=== PATIENT | male | born 1945 | race Caucasian/White ===

== ENCOUNTER → 2017-01-17 | Day surgery (SDC) | payer MEDICARE ==
[~2017-01-17] VITALS: Ht 175.3 cm; Wt 81.7 kg
[~2017-01-17] MED LIST: 0.9% Sodium Chloride 1,000 ML IV SCH; LISI2.5T PO; Sodium Chloride LOK Flush 10 mL Syringe IV PRN; TAMS0.4C98 PO; TERA5CAP6 PO; VENL100T3 PO; fentaNYL-PF 50 mCg/mL 2 mL Inj IVPUSH PRN
[2017-01-17 09:43] VITALS: BP 130/87; PULSE 78; RESP 16; O2SAT 98
[2017-01-17 11:20] VITALS: BP 131/48; PULSE 87; RESP 14; O2SAT 96
[2017-01-17 11:37] VITALS: BP 131/71; PULSE 75; RESP 14; O2SAT 94
--- NOTE | 2017-01-17 11:39 | ENDO ---
[address] [address] ENDOSCOPY PROCEDURE PATIENT: MACK MAR : 1945 MR#: [id number] ADMIT: 01/17/2017 JOB ID: [id number] DATE: 01/17/2017 PREOPERATIVE DIAGNOSIS(ES): Colorectal cancer screening. POSTOPERATIVE DIAGNOSIS(ES): Normal colonoscopy into terminal ileum. OPERATION: Colonoscopy into terminal ileum. SURGEON: Rylan De La Fuente M.D. INDICATIONS: A 71-year-old man who 10 years ago had a normal colonoscopy and he is here for colorectal cancer screening. FINDINGS: He had a fair prep. There were vegetable fibers and pill fragments mostly in the cecum. The scope was advanced into the terminal ileum which was entirely normal. The scope was withdrawn over 10 minutes and 15 seconds. There were no abnormalities identified. Retroflexed views of the rectum were normal. DESCRIPTION OF PROCEDURE: The procedure and sedation plan was discussed with the patient and nursing staff, and a procedural time-out was held. He received 5 mg of Versed and 125 mcg of fentanyl. Olympus PCF H 180 AL videocolonoscope was passed transanally, advanced into the cecum and then into the terminal ileum, withdrawn over 10 minutes and 15 seconds using suction and irrigation as necessary and obtaining retroflexed views of the rectum with results as stated above. The patient tolerated the procedure well. There no complications. IMPRESSION: Normal colonoscopy and normal terminal ileum. RECOMMENDATIONS: Colonoscopy in 10 years if the patient's health is otherwise stable.
== END | disposition home or self-care (01) ==
LOC: END 00:51
PROVIDERS: ATTEND Surgery
DX: Z12.11 Encounter for screening for malignant neoplasm of colon (principal); Z86.010 Personal history of colon polyps; I10 Essential (primary) hypertension; R01.1 Cardiac murmur, unspecified; I45.10 Unspecified right bundle-branch block; F41.8 Other specified anxiety disorders; N40.0 Benign prostatic hyperplasia without lower urinary tract symptoms; Z85.828 Personal history of other malignant neoplasm of skin
CPT/HCPCS: 99153; G0105; G0500; J2250; J3010; J7030